=== PATIENT | male | born 1955 | race Caucasian/White ===

== ENCOUNTER 2016-09-07 12:15 | Emergency (ER) | payer MEDICAID, OTHER ==
[~2016-09-07] VITALS: Ht 170.2 cm; Wt 81.8 kg
[2016-09-07 12:36] VITALS: BP 127/86; PULSE 63; RESP 15; O2SAT 100
--- NOTE | 2016-09-07 16:22 | ED.REPORT ---
HPI-Extremity Problem Lower Date of Service Sep 07, 2016 ED Provider: Tavares Lovett MD Patient is a 61 year old male who presents to the ED complaining of L foot pain s/p hitting his foot on a piece of equipment in December 2015. He was incarcerated when his injury occurred and did not receive an X-ray. He is requesting an X-ray at this time. Associated symptoms include trouble walking secondary to his pain. He denies numbness, tingling, or any other symptoms. Nursing Notes Stated Complaint: L FOOT PAIN Chief Complaint: Extremity Trauma Nursing Notes Reviewed: Yes Allergies: Coded Allergies: No Known Allergies (Unverified , 09/07/16) General Time Seen by MD: 16:19 Chief Complaint Foot injury left Hx Obtained From: Patient Arrived By: Walk-in Onset Occurred: More than a week ago... (>6 months) Past Medical History Past Medical History cerebral palsy Past Surgical History Achilles tendon L surgery Reports: Cataract surgery Smoking History Unknown if Ever Smoker Social History Drug Use: THC Review of Systems Musculoskeletal: Reports: Extremity pain (L foot ), Joint pain (L ankle ) Neurologic: Reports: Problem walking, Denies: Numbness, Weakness Complete sys rev & neg: except as marked. Physical Exam Initial Vital Signs Vital Signs (First) Date Time Temp Pulse Resp B/P Pulse Ox O2 Delivery O2 Flow Rate FiO2 09/07/16 12:36 36.2 63 15 127/86 100 Room Air General/Constitutional: Well-developed, Well-nourished Head / Eyes: Atraumatic, Normocephalic Neck: Full range of motion Respiratory: Breath sounds normal, Clear to auscultation, No respiratory distress Cardiovascular: Intact distal pulses Skin: Warm, Dry Neurologic: Alert, Oriented, Nonfocal Psychiatric: Mood/affect normal, Behavior normal, Normal thought content Lower Extremity / Pelvis / MS: Atraumatic No calf swelling or tenderness. Left Ankle: Positive: Tenderness present... Tenderness and mild swelling about the L lateral malleus and L lateral foot. Intact distal and pedal pulses. Sensation intact. No instability. L Achilles well healed scar. Interpretation & Diagnostics X-Ray Interpretation Xray Interpretation: IMPRESSION: Posterior calcaneal spurring. Dystrophic calcifications projecting in the region of the Achilles tendon suggesting chronic Achilles tendinopathy. Mild first MTP joint degeneration. No fracture. Dictated by: Ian Byrnes M.D. on 09/07/2016 at 17:23 Approved by: Ian Byrnes M.D. on 09/07/2016 at 17:25 X-Ray Ordered: Foot left Interpretation / Wet Read by: Interpret - Radiologist Xray Interpretation: IMPRESSION: Posterior calcaneal spurring. Findings suggest chronic Achilles tendinopathy. Recommend clinical correlation. Dictated by: Ian Byrnes M.D. on 09/07/2016 at 17:25 Approved by: Ian Byrnes M.D. on 09/07/2016 at 17:27 X-Ray Ordered: Ankle left Interpretation / Wet Read by: Interpret - Radiologist Re-Eval/Medical Decision Med Decision/Clinical Course Patient is a 61 year old male who presents to the ED complaining of L foot pain s/p hitting his foot on a piece of equipment in December 2015. He was incarcerated when his injury occurred and did not receive an X-ray. He is requesting an X-ray at this time. Associated symptoms include trouble walking secondary to his pain. He denies numbness, tingling, or any other symptoms. Emergency department he is afebrile with stable vital signs and examination as above. He is neurovascularly intact in the affected extremity. Plain films of the left foot and ankle demonstrate chronic degenerative changes and Achilles tendinitis without any acute fracture or dislocation. Here in the emergency room his pain was treated with 1 tab of [place]. I offered him crutches, flat soled shoe and orthopedic referral however he declined these interventions. He requested narcotic pain medications however I do not feel comfortable prescribing these given that his pain is chronic in nature and he admits that his primary care physician has declined to prescribe him further doses of oxycodone. She was advised to follow-up with his primary care physician or orthopedic surgery regarding his chronic ongoing foot pain. He was advised to apply ice packs and take [id number] ibuprofen or Tylenol. Prior to discharge follow -up and return precautions were reviewed in detail with the patient who verbalized understanding and agreement with the plan. The patient was discharged in stable condition. Re-Evaluation/Progress : Time of Eval: 18:49 Re-Evaluation/Progress Note: Discussed xray results and plan for discharge with ortho follow up. Patient understands and agrees with plan. All questions addressed at this time. Patient is requesting pain management. Suggestions were made for managing pain including flat soled shoes, crutches, and ortho follow up. Counseled Regarding: Diagnosis, Lab results, Need for follow-up, When/why to return to ED Discharge & Departure Impression: Primary Impression: Degenerative joint disease Osteoarthritis location: unspecified site Osteoarthritis type: unspecified Qualified Code: M19.90 - Unspecified osteoarthritis, unspecified site Additional Impressions: Achilles tendinitis Laterality: left Qualified Code: M76.62 - Achilles tendinitis, left leg Left foot pain Disposition: Home Discharge Condition All VS Reviewed: Yes Condition: Stable Additional Instructions: Thank you for seeking care at the emergency room. It is difficult for us to make definitive diagnoses in the ED but we believe that you are experiencing Achilles tendinitis and chronic joint disease of her foot. Our primary goal today in the ED was to evaluate you for any life-threatening conditions. Your evaluation was reassuring. We see no fractures. You should follow-up with your primary doctor in the next week. I recommend applying ice packs and taking Tylenol 650 mg 3 times a day. Do not combine this with any other Tylenol-containing medications such as Vicodin, Percocet. You should return to the ED immediately if you develop worsening pain, swelling , redness, warmth, fevers, vomiting, cough, shortness of breath, chest pain, lightheadedness, weakness or any other concerning signs or symptoms. Thank you for letting us partake in your care today. Referrals: [facility] (PCP) Ben Quiles DO Scribe Attestation Portions of this note were transcribed by Javy Wisdom. I, Dr. Lovett personally performed the history, physical exam and medical decision-making; I reviewed and confirmed the accuracy of the information in the transcribed note. Signed by: Javy Wisdom 09/07/16, 1849 Tavares Lovett MD Sep 07, 2016 16:22 JAVY WISDOM Sep 07, 2016 16:43
[2016-09-07] MEDS ORDERED: HYDROcodone-APAP 5-325 mg Tablet PO ONE (16:45)
--- NOTE | 2016-09-07 17:27 | DRSVH ---
PROCEDURE: X-RAY LEFT FOOT COMPLETE, MINIMUM THREE VIEWS ([id number]) INDICATIONS: left foot pain TECHNIQUE: 3 views of the foot were acquired. COMPARISON: None. FINDINGS: Bones: No fractures or dislocations. No suspicious bony lesions. Bone island projecting in the pro ximal phalanx of the fourth toe. Os cuboid incidentally noted. Posterior calcaneal spurring and dystr ophic calcifications in the region of the Achilles tendon suggestive of chronic Achilles tendinopathy Soft tissues: No tibiotalar joint effusion. Achilles tendon appears normal. IMPRESSION: Posterior calcaneal spurring. Dystrophic calcifications projecting in the region of the Achilles tendon suggesting chronic Achilles tendinopathy. Mild first MTP joint degeneration. No fracture. Dictated by: Ian Byrnes M.D. on 09/07/2016 at 17:23 Approved by: Ian Byrnes M.D. on 09/07/2016 at 17:25
--- NOTE | 2016-09-07 17:29 | DRSVH ---
PROCEDURE: X-RAY LEFT ANKLE, MINIMUM THREE VIEWS ([id number]) INDICATIONS: ankle pain TECHNIQUE: 3 views of the ankle were acquired. COMPARISON: None. FINDINGS: Bones: No fractures or dislocations. Ankle mortise is normally aligned. No suspicious bony lesions . Posterior calcaneal spurring. Dystrophic desiccation projecting in the region of the Achilles tend on Soft tissues: No tibiotalar joint effusion. Achilles tendon appears normal. IMPRESSION: Posterior calcaneal spurring. Findings suggest chronic Achilles tendinopathy. Recommend clinical correlation. Dictated by: Ian Byrnes M.D. on 09/07/2016 at 17:25 Approved by: Ian Byrnes M.D. on 09/07/2016 at 17:27
[2016-09-07 18:33] VITALS: BP 139/86; PULSE 63; O2SAT 97
== END 2016-09-07 18:54 | disposition home or self-care (01) ==
LOC: SED 12:15
DX: M19.072 Primary osteoarthritis, left ankle and foot (principal); M76.62 Achilles tendinitis, left leg; Z98.890 Other specified postprocedural states